=== PATIENT | female | born 2000 | race Two or more races ===

== ENCOUNTER 2023-03-18 15:34 | Emergency (ER) | payer OTHER ==
[~2023-03-18] VITALS: Ht 152.4 cm; Wt 49.9 kg
== END 2023-03-18 18:27 | disposition home or self-care (01) ==
LOC: ER 15:34
DX: N39.0 Urinary tract infection, site not specified (principal); B96.89 Other specified bacterial agents as the cause of diseases classified elsewhere

== ENCOUNTER 2023-06-30 22:08 | Emergency (ER) | payer OTHER ==
[~2023-06-30] VITALS: Ht 152.4 cm; Wt 45.8 kg
== END 2023-07-01 01:51 | disposition home or self-care (01) ==
LOC: ER 22:08
DX: M54.59 Other low back pain (principal)